=== PATIENT | male | born 1960 | race Asian ===

== ENCOUNTER 2025-02-11 13:20 | Inpatient (IN) | payer OTHER ==
[~2025-02-11] VITALS: Ht 177.8 cm; Wt 113.0 kg
[2025-02-11] MEDS ORDERED: INSULIN LISPRO 100 UNITS/ML SQ PRN (13:30)
[2025-02-11] MEDS ORDERED: ONDANSETRON HCL 4 MG/2 ML VIAL IVP PRN (13:30)
[2025-02-11] MEDS ORDERED: MAGNESIUM HYDROXIDE SUSPENSION 30 ML UDCUP PO PRN (13:30)
[2025-02-11] MEDS ORDERED: DEXTROSE 50%-WATER 25 GM/50 ML SYRINGE IVP PRN (13:30)
[2025-02-11] MEDS: ACETAMINOPHEN 325 MG TABLET PO PRN (13:57)
[2025-02-11 14:22] LABS: APPEARANCE,URINE CLEAR (CLEAR); BILIRUBIN,URINE NEGATIVE (NEGATIVE); COLOR,URINE LIGHT YELLOW (YELLOW); GLUCOSE, URINE (UA) NEGATIVE (NEGATIVE); KETONES,URINE NEGATIVE (NEGATIVE); LEUKOCYTE ESTERASE ,URINE NEGATIVE (NEGATIVE); NITRATE,URINE NEGATIVE (NEGATIVE); OCCULT BLOOD,URINE TRACE (NEGATIVE); PH,URINE 6.5 (5.0-8.0); PROTEIN,URINE 100-200,SEE CONFIRM mg/dL (NEGATIVE); SPECIFIC GRAVITIY, URINE 1.013 (1.003-1.030); UROBILINOGEN,URINE <=1.0 mg/dL (<=1.0)
[2025-02-11 14:25] LABS: BASOPHILS % (AUTO) 1.5 % (0.0-2.0); EOSINOPHILS % (AUTO) 1.5 % (1.0-6.0); HEMATOCRIT 41.9 % (41-53); LYMPHOCYTES # (AUTO) 1.6 K/uL (1.0-4.8); LYMPHOCYTES % (AUTO) 30.4 % (22.0-44.0); MEAN CORPUSCULAR HEMOGLOBIN 30.1 pg (26.0-34.0); MEAN CORPUSCULAR HGB CONC 33.5 G/dL (31.0-37.0); MEAN CORPUSCULAR VOLUME 90 fL (80-100); MONOCYTES # (AUTO) 0.4 K/uL (0.1-1.0); MONOCYTES % (AUTO) 8.7 % (2.0-9.0); NEUTROPHILS % (AUTO) 57.9 % (40.0-70.0); PLATELET COUNT (AUTO) 219 K/uL (150-450); RED BLOOD CELL COUNT(AUTO) 4.66 MIL/uL (4.50-5.90); RED CELL DISTRIBUTION WIDTH 13.8 % (11.5-14.5); WHITE BLOOD COUNT (AUTO) 5.1 K/uL (4.5-11.0)
[2025-02-11 14:36] LABS: SULFOSALICYLIC ACID,URINE 2+ (Negative)
[2025-02-11 14:37] LABS: BACTERIA,URINE None Seen /HPF (None Seen); RBC,URINE 0-2 /HPF (0-2); WBC,URINE None Seen /HPF (0-5)
[2025-02-11 14:39] LABS: CREATINE KINASE, TOTAL ONLY 571 U/L (39-308); PROTHROMBIN TIME 10.8 SEC (9.4-11.6)
[2025-02-11 14:44] LABS: ANION GAP 7 mmol/L (8-16); CALCIUM, TOTAL 8.9 mg/dL (8.8-10.5); CARBON DIOXIDE 29 mmol/L (22-29); CHLORIDE 108 mmol/L (98-107); CREATININE 1.07 mg/dL (0.60-1.30); GLOMERULAR FILTR. RATE CALC > 60 mL/min (>60); GLUCOSE,RANDOM 88 mg/dL (70-110); SODIUM SERUM 144 mmol/L (136-145); TROPONIN I-HIGH SENSITIVITY 58 ng/L (<76); UREA NITROGEN, BLOOD 17 mg/dL (7-18)
[2025-02-11 14:49] LABS: B-TYPE NATRIURETIC PEPTIDE 382 pg/mL (0-100)
[2025-02-11] MEDS ORDERED: POTASSIUM CHL 10 MEQ/WATER 50 ML IV PRN (15:15)
[2025-02-11] MEDS: POTASSIUM CHLORIDE 20 MEQ ER TABLET PO PRN (15:28)
[2025-02-11] MEDS: AmLODIPine BESYLATE 10 MG TABLET PO SCH (15:28)
[2025-02-11] MEDS: OxyCODONE HCL/ACETAMINOPHEN 5-325 MG TABLET PO PRN (15:33)
[2025-02-11] MEDS: NITROGLYCERIN 0.3 MG SUBLINGUAL TABLET #100 SL PRN (18:27)
[2025-02-11] MEDS: DOCUSATE SODIUM 100 MG CAPSULE PO SCH (21:00)
[2025-02-11] MEDS: carvediloL 12.5 MG TABLET PO SCH (21:00)
[2025-02-11] MEDS: SPIRONOLACTONE 25 MG TABLET PO SCH (21:00)
[2025-02-11] MEDS: ATORVASTATIN CALCIUM 40 MG TABLET PO SCH (21:00)
[2025-02-11] MEDS: ARIPiprazole 10 MG TABLET PO SCH (21:00)
[2025-02-11] MEDS: TAMSULOSIN HCL 0.4 MG CAPSULE PO SCH (21:00)
[2025-02-12 00:36] LABS: GLUCOMETER DEV NAME(LOC) 5N.2C; GLUCOSE,POINT OF CARE 96 MG/DL (70-110)
[2025-02-12] MEDS ORDERED: ATORVASTATIN CALCIUM 40 MG TABLET PO SCH (09:00)
[2025-02-12] MEDS: ASPIRIN 81 MG CHEWABLE TABLET PO SCH (09:00)
[2025-02-12] MEDS: FAMOTIDINE 20 MG TABLET PO SCH (09:00)
[2025-02-12] MEDS: CLOPIDOGREL BISULFATE 75 MG TABLET PO SCH (09:00)
[2025-02-12 15:41] VITALS: BP 134/90; PULSE 75; RESP 18; TEMP 98.2; O2SAT 95
[2025-02-12] MEDS ORDERED: ASPI81TA87 PO (15:54)
[2025-02-12] MEDS ORDERED: AMLO10TA55 PO (15:54)
[2025-02-12] MEDS ORDERED: ARIP10TA8 PO (15:54)
[2025-02-12] MEDS ORDERED: ALLO100T50 PO (15:54)
[2025-02-12] MEDS ORDERED: ATOR20TA65 PO (15:55)
[2025-02-12] MEDS ORDERED: EMPA25TA3 PO (15:56)
[2025-02-12] MEDS ORDERED: CARV40CP PO (15:56)
[2025-02-12] MEDS ORDERED: SACU1TAB7 PO (15:57)
[2025-02-12] MEDS ORDERED: EZET10TA82 PO (15:57)
[2025-02-12 20:00] VITALS: BP 162/102; PULSE 67; RESP 18; TEMP 97.7; O2SAT 96
== END 2025-02-12 22:00 | DRG 90 ==
LOC: EMS 13:29 → EDH 13:30 → 5S 20:09
PROVIDERS: ADMIT Internal Medicine; ATTEND Internal Medicine
DX: S06.0X0A Concussion without loss of consciousness, initial encounter (principal); F20.9 Schizophrenia, unspecified; I11.0 Hypertensive heart disease with heart failure; M10.9 Gout, unspecified; E66.9 Obesity, unspecified; X58.XXXA Exposure to other specified factors, initial encounter; E87.6 Hypokalemia; Z91.199 Patient's noncompliance with other medical treatment and regimen due to unspecified reason; Z95.1 Presence of aortocoronary bypass graft; Y93.89 Activity, other specified; Y92.89 Other specified places as the place of occurrence of the external cause; Y99.8 Other external cause status; Z68.35 Body mass index [BMI] 35.0-35.9, adult
CPT/HCPCS: 70450; 71045; 80048; 81001; 81002; 82550; 82962; 83880; 84132; 84484; 85025; 85610; 85730; 93005; 93306; 99285; 36415-L1; 36415-TC